=== PATIENT | female | born 1935 | race Caucasian/White ===

== ENCOUNTER 2022-05-05 13:57 | Inpatient (IN) | payer MEDICARE, SELFPAY ==
--- NOTE | ~2022-05-05 | XR_ITS ---
EXAMINATION: XR abdomen/kub 1V DATE: 05/07/2022 08:07 INDICATION: Constipation. TECHNIQUE: A supine view of the abdomen on 2 radiographs was obtained. COMPARISON: CT abdomen and pelvis 05/05/2022 FINDINGS: There are no dilated loops of bowel. There is a moderate volume of stool in the colon. Ther e is a bipolar right hip hemiarthroplasty. There are old healed fractures of right superior and infer ior pubic rami. IMPRESSION: 1. Nonobstructive bowel gas pattern with moderate volume of stool in the colon. Reviewed, dictated and finalized at location A. T EXPERIENCE CAPTAIN
--- NOTE | ~2022-05-05 | CT_ITS ---
EXAMINATION: CT abdomen pelvis wo con DATE: 05/05/2022 20:31 INDICATION: urinary retention x3 days, gen abd pain, constipation x2+ wk TECHNIQUE: Computed tomography (CT) of the abdomen and pelvis was performed without intravenous contr ast. Automated exposure control and iterative reconstruction technique were employed. The dose-length product was 213.77 mGy-cm. COMPARISON: X-ray abdomen, same date. FINDINGS: Lower thorax: Senescent change. Minimal bibasilar atelectasis. Coronary artery calcification. Hiatal hernia. Liver: Normal. Biliary/Gallbladder: Gallbladder is normal. No bile duct dilation. Pancreas: No mass or duct dilation. Spleen: Normal. Adrenals:No mass. Kidneys: No mass, stone, or hydronephrosis. GI tract: No small bowel dilation. The rectum is dilated to 5.1 cm by formed stool. Large volume of i nspissated appearing stool throughout the colon. Mild wall edema and inflammatory change surrounding the rectum. Normal appendix. Diverticulosis without diverticulitis. Mesentery/Peritoneum: No ascites, mass, or free air. Retroperitoneum: No mass. Atherosclerotic abdominal aortic and/or arterial calcifications. Pelvis: A Francisco catheter terminates in the urinary bladder which is distended, with wall thickening. Atrophic uterus. Soft Tissues: Soft tissues and body wall unremarkable. Bones: No acute osseous finding. IMPRESSION: Likely fecal impaction, with possible early findings of stercoral colitis. Distended urinary bladder despite the presence of a Francisco catheter, correlate with tube function. Cystitis. Reviewed, dictated and finalized at location K. LIANCE INTERN IMPRESSION: Likely fecal impaction, with possible early findings of stercoral colitis. Dist ended urinary bladder despite the presence of a Francisco catheter, correlate with tube function. Cystitis.
--- NOTE | ~2022-05-05 | XR_ITS ---
EXAMINATION: XR abdomen/kub 1V DATE: 05/05/2022 14:26 INDICATION: Constipation. TECHNIQUE: A supine view of the abdomen on 2 radiographs was obtained. COMPARISON: None. FINDINGS: There is a large volume of stool in the colon. There are no dilated loops of bowel. There i s a bipolar right hip hemiarthroplasty. There are old healed fractures of right superior and inferior pubic rami. IMPRESSION: 1. Large volume of stool in the colon. Reviewed, dictated and finalized at location A. [employer]
[2022-05-05 14:11] VITALS: BP 136/75; PULSE 94; RESP 18; TEMP 36.4; O2SAT 99
--- NOTE | 2022-05-05 19:12 | ED.FEMALEGU ---
HPI - Female Genitourinary General Chief complaint: Urogenital-Female Stated complaint: constipation Time Seen by Provider: 05/05/22 18:49 History of Present Illness HPI Narrative: Patient is an 86-year-old female presenting with constipation and urinary retention. Patient states that she has been struggling with constipation for the last several weeks. States that she has had several small bowel movements that are liquidy in nature. States that for the last 3 days she has been unable to have a bowel movement and it feels like something is sitting in her rectum. Patient also states that she has not urinated in 3 days. States that she does not feel like she needs to. She states that she has been eating and drinking normally. She does report some intermittent abdominal pain. No fevers or chills, cough, chest pain, shortness of breath, nausea or vomiting, flank pain, back pain. Related Data Home Medications Medication Instructions Recorded Confirmed amlodipine 10 mg tablet 10 mg PO DAILY 05/06/22 05/06/22 aspirin 81 mg tablet 81 mg PO DAILY 05/06/22 05/06/22 atorvastatin 40 mg tablet 40 mg PO HS 05/06/22 05/06/22 tramadol 50 mg tablet 50 mg PO DAILY 05/06/22 05/06/22 Allergies Allergy/AdvReac Type Severity Reaction Status Date / Time No Known Allergies Allergy Unknown Unverified 01/28/19 14:39 Review of Systems Review of Systems: All systems reviewed & are unremarkable except as noted in HPI and below PMFSH Past Medical History Medical History (Updated 05/08/22 @ 12:49 by Gertrudis Sinclair MD) Hyperlipidemia Hypertension Surgical History Surgical History (Updated 05/06/22 @ 13:51 by Jerica Marroquin PA-C) History of hip replacement, total Right Family History Family History (Updated 05/06/22 @ 13:51 by Jerica Marroquin PA-C) Sibling Carcinoma of colon Heart disease Mother Heart disease Social History Social History (Updated 05/06/22 @ 13:52 by Jerica Marroquin PA-C) Social History: Patient currently lives at home with her daughter. Patient has no pets. Patient denies smoking and illicit drug abuse. Patient does occasionally drink alcohol once a month when she plays poker with her friends. Smoking status: Never smoker Second hand tobacco smoke exposure: No Alcohol intake: never Substance use: never Substance use type: does not use Lack of Transportation: No Lack of Food: Never True Current Housing: I Have Housing Concerned About Future Housing: No Difficulty Paying Gas/Electric Bills: No Difficulty Paying for Meds: No Currently Unemployed: No Education: High School Diploma/GED Difficulty w/ Childcare or Family Care: No Spiritual care concerns: No Exam Narrative: GENERAL: Elderly female laying in bed in no acute distress, pleasant and cooperative HEAD: Normocephalic, atraumatic. EYES: PERRLA and EOMI. ENT: Nares clear, no rhinorrhea or epistaxis. Mucous membranes dry NECK: Supple. CHEST: Clear to auscultation. No respiratory distress. HEART: Regular rate and rhythm. No murmur heard. Normal peripheral pulses. ABDOMEN: Soft, suprapubic region with significant distention and tenderness EXTREMITIES: Normal range of motion. No edema. SKIN: Warm, dry, no rash. NEURO: No focal deficits. Alert and oriented x3. PSYCH: Normal mood and affect. Course Vital Signs Vital signs: Vital Signs Temperature 97.5 F L 05/05/22 14:11 Pulse Rate 94 05/05/22 14:11 Respiratory Rate 18 05/05/22 14:11 Blood Pressure 136/75 05/05/22 14:11 Pulse Oximetry 99 05/05/22 14:11 Temperature 97.8 F 05/08/22 03:25 Pulse Rate 81 05/08/22 03:25 Respiratory Rate 18 05/08/22 03:25 Blood Pressure 122/66 05/08/22 03:25 Pulse Oximetry 98 05/08/22 03:25 Oxygen Delivery Room Air 05/07/22 20:00 MDM - Female Genitourinary MDM Narrative Medical decision making narrative: Patient is an 86-year-old female presenting with constipation and
--- NOTE | 2022-05-05 19:43 | PC.NURSE ---
1899 ASsumed pt care from Zoya Ford RN
[2022-05-05 21:40] LABS: Basophils Absolute Auto 0.1 K/mm3 (0.0-0.1); Basophils Percent Auto 0.6 % (0.2-1.2); Eosinophils Absolute Auto 0.1 K/mm3 (0-0.3); Eosinophils Percent Auto 1.5 % (0-4.4); Hematocrit 34.3 % (37.0-47.0); Hemoglobin 11.2 g/dL (12.0-15.0); Immature Granulocyte Absolute 0.09 K/mm3 (0.00-0.031); Lymphocytes Absolute Auto 1.54 K/mm3 (0.9-3.2); Lymphocytes Percent Auto 16.6 % (18.3-44.2); Mean Corpuscular HGB Conc 32.7 g/dl (32-36); Mean Corpuscular Hemoglobin 30.1 pg (26-34); Mean Corpuscular Volume 92.2 fl (80-100); Mean Platelet Volume 12.3 fl (7.4-10.4); Monocytes Absolute Auto 0.7 K/mm3 (0.1-0.6); Neutrophils Absolute Auto 6.7 K/mm3 (1.3-6.7); Neutrophils Percent Auto 72.3 % (45.5-73.1); Platelet Count Result 159 k/mm3 (150-375); Red Blood Count 3.72 M/mm3 (4.2-5.4); Red Cell Distribution Width 13.9 % (11.5-14.5); White Blood Count 9.3 K/mm3 (4.5-10.0)
[2022-05-05 21:47] LABS: Appearance Urine Clear (Clear); Bilirubin Urine Negative (Negative); Blood Urine Trace-intact (Negative); Color Urine Yellow (Yellow); Glucose Urine UA Negative (Negative); Ketones Urine Negative (Negative); Leukocyte Esterase Ur Negative LEU/UL (Negative); Nitrate Urine Negative (Negative); Protein Urine Trace mg/dL (Negative); Specific Grav Ur 1.015 (1.001-1.035); Urobilinogen Urine 0.2 mg/dL (<2.0)
[2022-05-05 21:49] LABS: Mucus Urine Rare /lpf; RBC Urine 0-2 /hpf (0-2); Squamous Epithelial Cell Urine Rare /hpf (Few); WBC Urine 0-3 /hpf
[2022-05-05 21:51] LABS: Alanine Aminotransferase 22 U/L (6-35); Albumin Level 4.5 g/dL (3.5-5.1); Alkaline Phosphatase 67 U/L (38-126); Anion Gap 6 mmol/L (8-16); Aspartate Amino Transferase 30 U/L (14-36); Bilirubin,Total 0.5 mg/dL (0.2-1.3); Blood Urea Nitrogen 32 mg/dL (7-17); Calcium 9.1 mg/dL (8.4-10.2); Carbon Dioxide 30 mmol/L (22-30); Chloride 100 mmol/L (98-107); Estimated CRCL calculation 20 ml/min; Estimated Glomerular Filt Rate 39; Glucose 98 mg/dL (65-110); Lactic Acid Reflex 1.1 mmol/L (0.7-2.0); Potassium 3.8 mmol/L (3.4-5.0); Sodium 136 mmol/L (137-145)
[2022-05-05 21:56] LABS: Add Urine Microscopic? YES
[2022-05-05] MEDS: SODIUM CHLORIDE 0.9% IV 1,000 ML 999 ML IV CONT (22:55)
[2022-05-05 23:20] LABS: Influenza A QL RT-PCR Negative (Negative); Influenza B QL RT-PCR Negative (Negative); RSV RNA, RT-PCR Negative (Negative); SARS-CoV-2 RNA PCR Negative
[2022-05-05 23:34] VITALS: BP 134/75; PULSE 81; RESP 16; TEMP 36.6; O2SAT 100
[2022-05-06] VITALS (7 sets, daily range): BP systolic 123–136; BP diastolic 55–82; PULSE 74–106; RESP 16–18; TEMP 36.2–36.6; O2SAT 97–100; BMI 17.2
--- NOTE | 2022-05-06 02:36 | PC.NURSE ---
pt was admitted with arnett catheter in place, appropriate output, yellow urine, not cloudy. enema administered, liquid stool 20 minutes after enema administration. pt reports improvement. pt shown around the room, call light within reach, bed in lowest position, bed alarm on, advised to call for assistance. pt stated that she ambulates independently at home with no assistive devices. pt reports to be continent as her baseline. pt's medication reconciled. pt is a&o x4, able to make needs known.
[2022-05-06 08:19] LABS: Alanine Aminotransferase 19 U/L (6-35); Albumin Level 3.8 g/dL (3.5-5.1); Alkaline Phosphatase 57 U/L (38-126); Anion Gap 6 mmol/L (8-16); Aspartate Amino Transferase 28 U/L (14-36); Bilirubin,Total 0.7 mg/dL (0.2-1.3); Blood Urea Nitrogen 21 mg/dL (7-17); Calcium 8.5 mg/dL (8.4-10.2); Carbon Dioxide 27 mmol/L (22-30); Chloride 108 mmol/L (98-107); Estimated CRCL calculation 30 ml/min; Estimated Glomerular Filt Rate 60; Glucose 98 mg/dL (65-110); Potassium 3.6 mmol/L (3.4-5.0); Sodium 141 mmol/L (137-145)
[2022-05-06 08:21] LABS: Basophils Absolute Auto 0.1 K/mm3 (0.0-0.1); Basophils Percent Auto 0.8 % (0.2-1.2); Eosinophils Absolute Auto 0.2 K/mm3 (0-0.3); Eosinophils Percent Auto 2.5 % (0-4.4); Hematocrit 35.2 % (37.0-47.0); Hemoglobin 11.3 g/dL (12.0-15.0); Immature Granulocyte Absolute 0.08 K/mm3 (0.00-0.031); Immature Platelet Fraction Pct 12.4 % (0.9-11.2); Lymphocytes Absolute Auto 1.33 K/mm3 (0.9-3.2); Mean Corpuscular HGB Conc 32.1 g/dl (32-36); Mean Corpuscular Hemoglobin 30.1 pg (26-34); Mean Corpuscular Volume 93.9 fl (80-100); Mean Platelet Volume 12.9 fl (7.4-10.4); Monocytes Absolute Auto 0.7 K/mm3 (0.1-0.6); Monocytes Percent Auto 8.1 % (2.6-8.5); Neutrophils Percent Auto 71.6 % (45.5-73.1); Platelet Count Result 168 k/mm3 (150-375); Red Blood Count 3.75 M/mm3 (4.2-5.4); Red Cell Distribution Width 13.9 % (11.5-14.5); White Blood Count 8.3 K/mm3 (4.5-10.0)
[2022-05-06] MEDS: ASPIRIN 81 MG ENTERIC TABLET PO (08:40)
[2022-05-06] MEDS: amLODIPine BESYLATE 5 MG TABLET 10 MG PO (08:40)
[2022-05-06] MEDS: traMADol HCL (*CRX) 50 MG TABLET PO (08:43)
[2022-05-06] MEDS: BISACODYL 10 MG SUPPOSITORY RECTAL (08:43)
--- NOTE | 2022-05-06 13:19 | PM.IMHP ---
H&P: HPI History of Present Illness Date/Time: 05/06/22 13:19 Chief Complaint: Constipation, urinary retention Narrative: This is a 86-year-old female with a history of hypertension and hyperlipidemia who presented to the ED on 05/05/2022 with a chief complaint of constipation and urinary retention. Patient states that she had not urinated in 3 days prior to ED presentation as well as having constipation for 2-3 weeks. Patient did have some leakage from the rectum but not a bowel movement. Patient stated that what brought her into the ED was some left lower quadrant pain which is since resolved. Patient was eating and drinking normally without issues. Patient does not take constipation medication at home. Francisco catheter placed in the ED. Patient does have a history of constipation but has never had to be hospitalized for it. Patient not on chronic indwelling Francisco catheter and has never had urinary retention issues before. Abdominal x-ray revealed large volume of stool in the colon. CT abdomen pelvis revealed a likely fecal impaction, distended urinary bladder and cystitis. Patient admitted to the hospital and this setting. Will resume home meds as appropriate. Patient denies fever, headache, dizziness, chest pain, shortness a breath, nausea, vomiting and diarrhea. Patient currently still having constipation. Review of Systems Review of Systems: All systems reviewed & are unremarkable except as noted in HPI and below PMFSH Past Medical History Medical History (Updated 05/06/22 @ 13:51 by Jerica Marroquin PA-C) Hyperlipidemia Hypertension Surgical History Surgical History (Updated 05/06/22 @ 13:51 by Jerica Marroquin PA-C) History of hip replacement, total Right Family History Family History (Updated 05/06/22 @ 13:51 by Jerica Marroquin PA-C) Sibling Carcinoma of colon Heart disease Mother Heart disease Social History Social History (Updated 05/06/22 @ 13:52 by Jerica Marroquin PA-C) Social History: Patient currently lives at home with her daughter. Patient has no pets. Patient denies smoking and illicit drug abuse. Patient does occasionally drink alcohol once a month when she plays poker with her friends. Smoking status: Never smoker Second hand tobacco smoke exposure: No Alcohol intake: never Substance use: never Substance use type: does not use Lack of Transportation: No Lack of Food: Never True Current Housing: I Have Housing Concerned About Future Housing: No Difficulty Paying Gas/Electric Bills: No Difficulty Paying for Meds: No Currently Unemployed: No Education: High School Diploma/GED Difficulty w/ Childcare or Family Care: No Spiritual care concerns: No Meds Home Medications and Allergies Home Medications Medication Instructions Recorded Confirmed Type amlodipine 10 mg tablet 10 mg PO DAILY 05/06/22 05/06/22 History aspirin 81 mg tablet 81 mg PO DAILY 05/06/22 05/06/22 History atorvastatin 40 mg tablet 40 mg PO HS 05/06/22 05/06/22 History tramadol 50 mg tablet 50 mg PO DAILY 05/06/22 05/06/22 History Allergies Allergy/AdvReac Type Severity Reaction Status Date / Time No Known Allergies Allergy Unknown Unverified 01/28/19 14:39 Vital Signs Vital Signs - 24 hr 05/05/22 14:11 05/05/22 23:34 05/06/22 00:10 Temperature 97.5 F L 97.9 F 97.2 F L Pulse Rate 94 81 98 Respiratory Rate 18 16 18 Blood Pressure 136/75 134/75 136/80 Pulse Oximetry 99 100 98 Oxygen Delivery 05/06/22 02:22 05/06/22 03:26 05/06/22 10:45 Temperature 97.4 F L Pulse Rate 98 74 Respiratory Rate 18 17 Blood Pressure 132/55 L Pulse Oximetry 98 100 99 Oxygen Delivery Room Air Room Air 05/06/22 08:00 Temperature Pulse Rate Respiratory Rate Blood Pressure Pulse Oximetry Oxygen Delivery Room Air Exam Narrative: GENERAL: Comfortable, no acute distress, thin HENMT: moist mucous membranes EYES: EOM intact b/l NECK: no lymph
[2022-05-06] MEDS: polyethylene glycoL 3350 17 GM POWD.PACK PO (18:02)
[2022-05-06] MEDS: ATORVASTATIN 40 MG TABLET PO (20:04)
[2022-05-07] VITALS (7 sets, daily range): BP systolic 127–134; BP diastolic 69–74; PULSE 81–107; RESP 18; TEMP 36.6–36.8; O2SAT 98–100; BMI 17.2
[2022-05-07 05:14] LABS: Hematocrit 34.5 % (37.0-47.0); Hemoglobin 11.2 g/dL (12.0-15.0); Mean Corpuscular HGB Conc 32.5 g/dl (32-36); Mean Corpuscular Hemoglobin 30.2 pg (26-34); Mean Platelet Volume 12.8 fl (7.4-10.4); Platelet Count Result 172 k/mm3 (150-375); Red Blood Count 3.71 M/mm3 (4.2-5.4); Red Cell Distribution Width 13.8 % (11.5-14.5); White Blood Count 11.6 K/mm3 (4.5-10.0)
[2022-05-07 05:29] LABS: Alanine Aminotransferase 19 U/L (6-35); Alkaline Phosphatase 55 U/L (38-126); Anion Gap 7 mmol/L (8-16); Aspartate Amino Transferase 29 U/L (14-36); Bilirubin,Total 0.7 mg/dL (0.2-1.3); Blood Urea Nitrogen 25 mg/dL (7-17); Calcium 8.7 mg/dL (8.4-10.2); Carbon Dioxide 27 mmol/L (22-30); Chloride 101 mmol/L (98-107); Estimated CRCL calculation 27 ml/min; Estimated Glomerular Filt Rate 53; Glucose 112 mg/dL (65-110); Potassium 3.6 mmol/L (3.4-5.0); Sodium 135 mmol/L (137-145)
[2022-05-07] MEDS: BISACODYL 10 MG SUPPOSITORY RECTAL (08:48)
[2022-05-07] MEDS: ASPIRIN 81 MG ENTERIC TABLET PO (08:50)
[2022-05-07] MEDS: amLODIPine BESYLATE 5 MG TABLET 10 MG PO (08:50)
[2022-05-07] MEDS: ENOXAPARIN 40 MG/0.4 ML SYRINGE SUB-Q (08:50)
[2022-05-07] MEDS: traMADol HCL (*CRX) 50 MG TABLET PO (08:50)
--- NOTE | 2022-05-07 13:23 | PM.IMPN ---
Progress Note: A&P Assessment and Plan (1) Constipation: Code(s): K59.00 - Constipation, unspecified Status: Acute Assessment and Plan: Patient presented to the ED due to constipation for 2-3 weeks. 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 Abdominal x-ray revealed large volume of stool in colon CT abdomen pelvis revealed a likely fecal impaction with possible early findings stercoral colitis Biscoydal suppository q.a.m. MiraLax b.i.d. Colace as needed soapsuds enema 05/07/22 Pt had BM over the last 24 hours repeat KUB revealed moderate volume of stool Continue with current treatment (2) Urinary retention: Code(s): R33.9 - Retention of urine, unspecified Status: Acute Assessment and Plan: Patient stated that she did not urinate for 3 days prior to presentation to the ED Francisco catheter placed in the ED Bladder scan PRN 05/07/22 Pt having suprapubic tenderness today bladder scan to rule of catheter obstruction. (3) Hypertension: Code(s): I10 - Essential (primary) hypertension Status: Acute Assessment and Plan: Continue home medication Plan MEDICAL DECISION MAKING NARRATIVE History obtained from: Patient, daughter History from independent sources: None External chart review: None, no past charts available New problems addressed: Constipation, urinary retention Chronic illnesses addressed: none Discussion of management with other providers: None Comorbidities complicating care: None Risk of complication: Low Independent interpretation of studies: Imaging and labs were personally reviewed. Diagnostic tests considered but not ordered: None Encounter time: Greater than 35 minutes Subjective Date/time seen: 05/07/22 13:23 Interval history: Patient doing well today with no complaints. Patient had bowel movement yesterday after soapsuds enema was given. Patient denies abdominal pain, nausea, vomiting, fever. Review of Systems Review of Systems: All systems reviewed & are unremarkable except as noted in HPI and below Exam Narrative: GENERAL: Comfortable, no acute distress HENMT: moist mucous membranes EYES: EOM intact b/l NECK: no lymphadenopathy RESPIRATORY: clear to auscultation CARDIO: RRR GI: soft, suprapubic tender, bowel sounds present SKIN: no rashes EXTREMITIES: no edema, redness or tenderness Objective Data Vital Signs Vital Signs: Vital Signs - 24 hr 05/06/22 14:05 05/06/22 19:06 05/06/22 20:00 Temperature 98 F 97.6 F Pulse Rate 88 106 H 106 H Respiratory Rate 16 18 18 Blood Pressure 129/77 123/82 Pulse Oximetry 100 97 97 Oxygen Delivery Room Air 05/07/22 03:47 05/07/22 03:46 05/07/22 08:45 Temperature 97.8 F Pulse Rate 107 H 107 H 81 Respiratory Rate 18 18 Blood Pressure 127/72 133/74 Pulse Oximetry 100 100 99 Oxygen Delivery Room Air 05/07/22 09:35 Temperature Pulse Rate Respiratory Rate Blood Pressure Pulse Oximetry 99 Oxygen Delivery Room Air Intake/Output Intake/Output: Intake & Output 05/04/22 05/05/22 05/06/22 05/07/22 23:59 23:59 23:59 23:59 Intake Total 1000 1180 200 Output Total 1425 2250 850 Ggkytdy -971 -8955 -650 Meds/Results Medications: Active Medications Generic Name Dose Route Start Last Admin Trade Name Jason PRN Reason Stop Dose Admin Amlodipine Besylate 10 mg 05/06/22 09:00 05/07/22 08:50 Amlodipine Besylate 5 Mg Tablet PO 10 mg DAILY [facility] Administration Aspirin 81 mg 05/06/22 09:00 05/07/22 08:50 Aspirin 81 Mg Enteric Tablet PO 06/05/22 08:59 81 mg DAILY FIDEL Administration Atorvastatin Calcium 40 mg 05/06/22 21:00 05/06/22 20:04 Atorvastatin 40 Mg Tablet PO 40 mg HS [facility] Administration Bisacodyl 10 mg 05/06/22 09:00 05/07/22 08:48 Bisacodyl 10 Mg Suppository RECTAL 10 mg QAM [facility] Adm
[2022-05-07] MEDS: polyethylene glycoL 3350 17 GM POWD.PACK PO (21:14)
[2022-05-07] MEDS: ATORVASTATIN 40 MG TABLET PO (21:14)
[2022-05-08 03:25] VITALS: BP 122/66; PULSE 81; RESP 18; TEMP 36.6; O2SAT 98
[2022-05-08 05:39] LABS: Hematocrit 33.7 % (37.0-47.0); Hemoglobin 10.7 g/dL (12.0-15.0); Mean Corpuscular HGB Conc 31.8 g/dl (32-36); Mean Corpuscular Hemoglobin 29.6 pg (26-34); Mean Corpuscular Volume 93.4 fl (80-100); Mean Platelet Volume 12.9 fl (7.4-10.4); Platelet Count Result 165 k/mm3 (150-375); Red Blood Count 3.61 M/mm3 (4.2-5.4); Red Cell Distribution Width 13.6 % (11.5-14.5); White Blood Count 8.4 K/mm3 (4.5-10.0)
[2022-05-08 05:53] LABS: Alanine Aminotransferase 18 U/L (6-35); Albumin Level 3.8 g/dL (3.5-5.1); Alkaline Phosphatase 57 U/L (38-126); Anion Gap 3 mmol/L (8-16); Aspartate Amino Transferase 27 U/L (14-36); Bilirubin,Total 0.6 mg/dL (0.2-1.3); Blood Urea Nitrogen 23 mg/dL (7-17); Calcium 8.6 mg/dL (8.4-10.2); Carbon Dioxide 31 mmol/L (22-30); Chloride 100 mmol/L (98-107); Estimated CRCL calculation 25 ml/min; Estimated Glomerular Filt Rate 47; Glucose 106 mg/dL (65-110); Sodium 134 mmol/L (137-145)
[2022-05-08] MEDS: ENOXAPARIN 40 MG/0.4 ML SYRINGE SUB-Q (08:35)
[2022-05-08] MEDS: amLODIPine BESYLATE 5 MG TABLET 10 MG PO (08:35)
[2022-05-08] MEDS: traMADol HCL (*CRX) 50 MG TABLET PO (08:35)
[2022-05-08] MEDS: ASPIRIN 81 MG ENTERIC TABLET PO (08:35)
[2022-05-08] MEDS: polyethylene glycoL 3350 17 GM POWD.PACK PO ×2 (08:35→20:36)
[2022-05-08 14:00] VITALS: BP 131/70; PULSE 91; RESP 16; TEMP 36.8; O2SAT 100
--- NOTE | 2022-05-08 16:03 | P.PNIM_ITS ---
Progress Note: A&P Assessment and Plan (1) Constipation: Code(s): K59.00 - Constipation, unspecified Status: Acute Assessment and Plan: Patient presented to the ED due to constipation for 2-3 weeks. 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 * Abdominal x-ray revealed large volume of stool in colon * CT abdomen pelvis revealed a likely fecal impaction with possible early findings stercoral colitis * Biscoydal suppository q.a.m. * MiraLax b.i.d. * Colace as needed * soapsuds enema 05/07/22 * Pt had BM over the last 24 hours * repeat KUB revealed moderate volume of stool * Continue with current treatment 05/08/22 * resolved. (2) Urinary retention: Code(s): R33.9 - Retention of urine, unspecified Status: Acute Assessment and Plan: Patient stated that she did not urinate for 3 days prior to presentation to the ED * Francisco catheter placed in the ED * Bladder scan PRN 05/07/22 * Pt having suprapubic tenderness today * bladder scan to rule of catheter obstruction. 05/08/22 * Francisco catheter taken out * planned on d/c patient today but she has been unable to urinate * Francisco catheter will be put back in if bladder scan >350mL (3) Hypertension: Code(s): I10 - Essential (primary) hypertension Status: Acute Assessment and Plan: Continue home medication Subjective Date/time seen: 05/08/22 16:03 Interval history: Patient doing well today with no new complaints and she is without pain. Patient's Francisco catheter removed. If patient cannot urinate Francisco catheter will be put back in. Review of Systems Review of Systems: All systems reviewed & are unremarkable except as noted in HPI and below Exam Narrative: GENERAL: Comfortable, no acute distress HENMT: moist mucous membranes EYES: EOM intact b/l NECK: no lymphadenopathy RESPIRATORY: clear to auscultation CARDIO: RRR GI: soft, nontender, bowel sounds present SKIN: no rashes EXTREMITIES: no edema, redness or tenderness Objective Data Vital Signs Vital Signs: Vital Signs - 24 hr 05/07/22 21:03 05/07/22 20:00 05/08/22 03:25 Temperature 98.2 F 97.8 F Pulse Rate 90 90 81 Respiratory Rate 18 18 18 Blood Pressure 127/69 122/66 Pulse Oximetry 98 98 98 Oxygen Delivery Room Air 05/08/22 14:00 Temperature 98.2 F Pulse Rate 91 Respiratory Rate 16 Blood Pressure 131/70 Pulse Oximetry 100 Oxygen Delivery Intake/Output Intake/Output: Intake & Output 05/05/22 05/06/22 05/07/22 05/08/22 23:59 23:59 23:59 23:59 Intake Total 1000 1180 1240 960 Output Total 1425 2250 1600 400 Balance -425 -1070 -360 560 Meds/Results Medications: Active Medications Generic Name Dose Route Start Last Admin Trade Name Freq PRN Reason Stop Dose Admin Amlodipine Besylate 10 mg 05/06/22 09:00 05/08/22 08:35 Amlodipine Besylate 5 Mg Tablet PO 10 mg DAILY [facility]IDEL Administration Aspirin 81 mg 05/06/22 09:00 05/08/22 08:35
--- NOTE | 2022-05-08 16:03 | PM.IMPN ---
Progress Note: A&P Assessment and Plan (1) Constipation: Code(s): K59.00 - Constipation, unspecified Status: Acute Assessment and Plan: Patient presented to the ED due to constipation for 2-3 weeks. 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 Abdominal x-ray revealed large volume of stool in colon CT abdomen pelvis revealed a likely fecal impaction with possible early findings stercoral colitis Biscoydal suppository q.a.m. MiraLax b.i.d. Colace as needed soapsuds enema 05/07/22 Pt had BM over the last 24 hours repeat KUB revealed moderate volume of stool Continue with current treatment 05/08/22 resolved. (2) Urinary retention: Code(s): R33.9 - Retention of urine, unspecified Status: Acute Assessment and Plan: Patient stated that she did not urinate for 3 days prior to presentation to the ED Francisco catheter placed in the ED Bladder scan PRN 05/07/22 Pt having suprapubic tenderness today bladder scan to rule of catheter obstruction. 05/08/22 Francisco catheter taken out planned on d/c patient today but she has been unable to urinate Francisco catheter will be put back in if bladder scan >350mL (3) Hypertension: Code(s): I10 - Essential (primary) hypertension Status: Acute Assessment and Plan: Continue home medication Subjective Date/time seen: 05/08/22 16:03 Interval history: Patient doing well today with no new complaints and she is without pain. Patient's Francisco catheter removed. If patient cannot urinate Francisco catheter will be put back in. Review of Systems Review of Systems: All systems reviewed & are unremarkable except as noted in HPI and below Exam Narrative: GENERAL: Comfortable, no acute distress HENMT: moist mucous membranes EYES: EOM intact b/l NECK: no lymphadenopathy RESPIRATORY: clear to auscultation CARDIO: RRR GI: soft, nontender, bowel sounds present SKIN: no rashes EXTREMITIES: no edema, redness or tenderness Objective Data Vital Signs Vital Signs: Vital Signs - 24 hr 05/07/22 21:03 05/07/22 20:00 05/08/22 03:25 Temperature 98.2 F 97.8 F Pulse Rate 90 90 81 Respiratory Rate 18 18 18 Blood Pressure 127/69 122/66 Pulse Oximetry 98 98 98 Oxygen Delivery Room Air 05/08/22 14:00 Temperature 98.2 F Pulse Rate 91 Respiratory Rate 16 Blood Pressure 131/70 Pulse Oximetry 100 Oxygen Delivery Intake/Output Intake/Output: Intake & Output 05/05/22 05/06/22 05/07/22 05/08/22 23:59 23:59 23:59 23:59 Intake Total 1000 1180 1240 960 Output Total 1425 2250 1600 400 Balance -425 1070 -360 560 Meds/Results Medications: Active Medications Generic Name Dose Route Start Last Admin Trade Name Freq PRN Reason Stop Dose Admin Amlodipine Besylate 10 mg 05/06/22 09:00 05/08/22 08:35 Amlodipine Besylate 5 Mg Tablet PO 10 mg DAILY [facility] Administration Aspirin 81 mg 05/06/22 09:00 05/08/22 08:35 Aspirin 81 Mg Enteric Tablet PO 06/05/22 08:59 81 mg DAILY [facility] Administration Atorvastatin Calcium 40 mg 05/06/22 21:00 05/07/22 21:14 Atorvastatin 40 Mg Tablet PO 40 mg HS [facility] Administration Bisacodyl 10 mg 05/06/22 09:00 05/08/22 09:54 Bisacodyl 10 Mg Suppository RECTAL Not Given QAM [facility]IDEL Docusate Sodium 100 mg 05/06/22 13:22 Docusate Sodium 100 Mg Capsule PO Q12H PRN Constipation Enoxaparin Sodium 40 mg 05/07/22 09:00 05/08/22 08:35 Enoxaparin 40 Mg/0.4 Ml Syringe SUB-Q 40 mg DAILY [facility]IDEL Administration Polyethylene Glycol 17 gm 05/07/22 21:00 05/08/22 08:35 Polyethylene Glycol 3350 17 Gm Powd.Pack PO 17 gm Q12HR [facility]ID[facility] Administration Tramadol HCl 50 mg 05/06/22 09:00 05/08/22 08:35 Tramadol Hcl (*Crx) 50 Mg Tablet PO 50 mg DAILY [facility] Administration Radiology Results: ITS Impressions Abdom
[2022-05-08 20:01] VITALS: BP 129/62; PULSE 87; RESP 18; TEMP 37.3; O2SAT 100
[2022-05-08] MEDS: ATORVASTATIN 40 MG TABLET PO (20:36)
[2022-05-09 03:17] VITALS: BP 116/73; PULSE 91; RESP 18; TEMP 36.4; O2SAT 99
[2022-05-09 05:44] LABS: Basophils Absolute Auto 0.1 K/mm3 (0.0-0.1); Basophils Percent Auto 0.8 % (0.2-1.2); Eosinophils Absolute Auto 0.3 K/mm3 (0-0.3); Eosinophils Percent Auto 4.5 % (0-4.4); Hematocrit 32.4 % (37.0-47.0); Hemoglobin 10.5 g/dL (12.0-15.0); Immature Granulocyte Absolute 0.06 K/mm3 (0.00-0.031); Immature Granulocyte Percent A 0.8 % (0-0.5); Immature Platelet Fraction Pct 12.9 % (0.9-11.2); Lymphocytes Absolute Auto 1.67 K/mm3 (0.9-3.2); Lymphocytes Percent Auto 21.9 % (18.3-44.2); Mean Corpuscular HGB Conc 32.4 g/dl (32-36); Mean Corpuscular Hemoglobin 30.3 pg (26-34); Mean Corpuscular Volume 93.4 fl (80-100); Mean Platelet Volume 13.1 fl (7.4-10.4); Monocytes Absolute Auto 0.8 K/mm3 (0.1-0.6); Monocytes Percent Auto 10.4 % (2.6-8.5); Neutrophils Absolute Auto 4.7 K/mm3 (1.3-6.7); Neutrophils Percent Auto 61.6 % (45.5-73.1); Platelet Count Result 163 k/mm3 (150-375); Red Blood Count 3.47 M/mm3 (4.2-5.4); Red Cell Distribution Width 13.6 % (11.5-14.5); White Blood Count 7.6 K/mm3 (4.5-10.0)
[2022-05-09 05:48] LABS: Alanine Aminotransferase 17 U/L (6-35); Albumin Level 3.4 g/dL (3.5-5.1); Alkaline Phosphatase 54 U/L (38-126); Anion Gap 3 mmol/L (8-16); Aspartate Amino Transferase 26 U/L (14-36); Bilirubin,Total 0.5 mg/dL (0.2-1.3); Blood Urea Nitrogen 24 mg/dL (7-17); Calcium 8.8 mg/dL (8.4-10.2); Carbon Dioxide 33 mmol/L (22-30); Chloride 104 mmol/L (98-107); Estimated CRCL calculation 23 ml/min; Estimated Glomerular Filt Rate 43; Glucose 108 mg/dL (65-110); Potassium 4.4 mmol/L (3.4-5.0); Sodium 140 mmol/L (137-145)
[2022-05-09] MEDS: polyethylene glycoL 3350 17 GM POWD.PACK PO ×2 (09:22→21:59)
[2022-05-09] MEDS: ASPIRIN 81 MG ENTERIC TABLET PO (09:22)
[2022-05-09] MEDS: amLODIPine BESYLATE 5 MG TABLET 10 MG PO (09:22)
[2022-05-09 09:42] VITALS: BP 132/84; PULSE 88; RESP 16; TEMP 37.1; O2SAT 99
[2022-05-09] MEDS: traMADol HCL (*CRX) 50 MG TABLET PO (10:15)
--- NOTE | 2022-05-09 10:42 | PM.IMPN ---
Progress Note: A&P Assessment and Plan (1) Constipation: Code(s): K59.00 - Constipation, unspecified Status: Acute Assessment and Plan: Patient with 2-3 weeks constipation prior to presentation. Imaging with large volume of stool, fecal impaction. Bowel regimen + soap suds enema has been ordered. Has had improvement with her reporting normal bowel function at this time. - miralax twice daily. Ducolax daily suppository. (2) Urinary retention: Code(s): R33.9 - Retention of urine, unspecified Status: Acute Assessment and Plan: 3 days of symptoms prior to presentation. Had arnett for 1-2 days, removed yesterday. Bladder scan up to 800ml overnight but able to void when instructed to do so. Does not note any urge to urinate. - Medications reviewed, no significant meds as likely etiology. - No history neurogenic issues. No DM. Patient is quite functional at home. - I would suspect initially secondary to fecal stasis/constipation but has not resolved. - q4h bladder training. Encourage voiding. Check PVR. - Urology consultation. (3) Hypertension: Code(s): I10 - Essential (primary) hypertension Status: Acute Assessment and Plan: Continue home medication - stable bp. Plan Will await urology consultation and plan for discharge with any recommendations for management and/or further outpatient workup per those recommendations. Likely discharge in the next 24 hours. Time Spent With Patient Time with patient: 15 - 25 minutes Subjective Date/time seen: 05/09/22 0800 Interval history: Patient denies new complaint or concern this am. She is not having abdominal pain. She states she has been moving her bowels per her baseline. Per nursing since having the arnett out she has had multiple retention episodes with scan of ~800ml overnight - but has been able to void when prompted to do so. Review of Systems Review of Systems: All systems reviewed & are unremarkable except as noted in HPI and below Exam Narrative: GENERAL APPEARANCE: Appears to be in no acute distress. HEAD: normocephalic atraumatic ENT: Hearing grossly intact, no nasal discharge NECK: Neck supple, trachea midline. CARDIAC: Normal S1/S2. Rhythm is regular. No murmurs, rubs, or gallops. No cyanosis or pallor. Extremities are warm and well perfused. LUNGS: Clear to auscultation without rales, rhonchi, wheezing or diminished breath sounds. Respirations even and unlabored. ABDOMEN: BS positive x 4 quadrants. Soft, nondistended, nontender. No guarding or rebound. MSK: No joint tenderness/swelling, fair strength in all extremities. PERIPHERAL VASCULAR: Peripheral pulses palpable. Normal perfusion, cap refill <2 seconds. No edema. NEURO: Follows commands. No focal deficits. SKIN: [place] without lesions or eruptions. PSYCH: Stable, no paranoia or delusional thinking. Objective Data Vital Signs Vital Signs: Vital Signs - 24 hr 05/08/22 14:00 05/08/22 20:01 05/08/22 20:00 Temperature 98.2 F 99.1 F Pulse Rate 91 87 Respiratory Rate 16 18 Blood Pressure 131/70 129/62 Pulse Oximetry 100 100 Oxygen Delivery Room Air 05/09/22 03:17 05/09/22 09:42 Temperature 97.6 F 98.7 F Pulse Rate 91 88 Respiratory Rate 18 16 Blood Pressure 116/73 132/84 Pulse Oximetry 99 99 Oxygen Delivery Intake/Output Intake/Output: Intake & Output 05/06/22 05/07/22 05/08/22 05/09/22 23:59 23:59 23:59 23:59 Intake Total 1180 1240 1200 290 Output Total 2250 1600 700 800 Balance -1070 -360 500 -510 Meds/Results Medications: Active Medications Generic Name Dose Route Start Last Admin Trade Name Freq PRN Reason Stop Dose Admin Amlodipine Besylate 10 mg 05/06/22 09:00 05/09/22 09:22 Amlodipine Besylate 5 Mg Tablet PO 10 mg DAILY FIDEL Administration Aspirin 81 mg 05/06/22 09:00 05/09/22 09:22 Aspirin 81 Mg Enteric Tablet PO 06/05/22 08:59 81 mg DAILY FIDEL Administration Atorvastatin
[2022-05-09 10:44] LABS: IFOB Positive Control Positive; Immunochemical Fecal Occult Bl Positive (N)
[2022-05-09] MEDS: LACTATED RINGERS 1,000 ML 100 ML IV CONT (11:19)
[2022-05-09 14:47] VITALS: BP 128/78; PULSE 87; RESP 18; TEMP 36.6; O2SAT 100
--- NOTE | 2022-05-09 15:08 | WPDURCON ---
Assessment and Plan Assessment and plan (1) Urinary retention: Code(s): R33.9 - Retention of urine, unspecified Status: Acute Assessment and Plan: Possible neurogenic bladder in origin. Will need urodynamics study in the office. She should have bladder scans PRN and if >400cc she should have a arnett re-placed. Urology Consult Note HPI Date Seen: 05/09/22 Time Seen: 14:00 Requesting Physician: Renuka Ward DO Primary Care Provider: Kedar Ospina MD Consult Narrative Narrative: Jes Huertas is a 86 year old female who presented to the ER with severe constipation and urinary retention 4 days ago. She states she hadn't urinated for 3 days prior to this. Her daughter states she does have CKD but doesn't see a edge plugger and doesn't do dialysis. Her creatinine is 1.20 today and is 0.90 at baseline. Her UA is not suspicious of a UTI, WBC is 7.6, she is afebrile and CT showed a distended bladder despite arnett in place on 04/26/22. Initially when the arnett was placed in the ER she had 300-400cc upon return immediately, but 1200cc were noted on return once the arnett stopped draining. She had a bladder scan after the arnett was removed for a voiding trial today and her PVR was 600cc, then she urinated and her PVR was 300cc in which prompted a consult to urology for incomplete emptying. She states she has been drinking fluids all day but doesn't have the urge to urinate. She denies dysuria, frequency, urgency, incontinence, flank pain, hematuria, or chronic UTI's prior to her hospitalization. Her daughter is in the room and states that the patient's sister has a neurogenic bladder and has to catheterize. Review of Systems Cardiovascular: Cardiovascular: Denies chest pain Respiratory: Respiratory: Reports no additional respiratory complaints Gastrointestinal: Gastrointestinal: Denies abdominal pain, Denies nausea and Denies vomiting Genitourinary: Genitourinary: Denies hematuria, Reports urinary frequency, Denies nocturia, Denies dysuria, Denies pelvic pain, Denies flank pain, Denies urinary incontinence, Reports urinary hesitancy and Denies urinary urgency PMFSH Past Medical History Medical History Hyperlipidemia Hypertension Surgical History Surgical History History of hip replacement, total Right Family History Family History Sibling Carcinoma of colon Heart disease Mother Heart disease Social History Social History Social History: Patient currently lives at home with her daughter. Patient has no pets. Patient denies smoking and illicit drug abuse. Patient does occasionally drink alcohol once a month when she plays poker with her friends. Smoking status: Never smoker Second hand tobacco smoke exposure: No Alcohol intake: never Substance use: never Substance use type: does not use Lack of Transportation: No Lack of Food: Never True Current Housing: I Have Housing Concerned About Future Housing: No Difficulty Paying Gas/Electric Bills: No Difficulty Paying for Meds: No Currently Unemployed: No Education: High School Diploma/GED Difficulty w/ Childcare or Family Care: No Spiritual care concerns: No Meds Home Medications and Allergies Home Medications Medication Instructions Recorded Confirmed Type amlodipine 10 mg tablet 10 mg PO DAILY 05/06/22 05/06/22 History aspirin 81 mg tablet 81 mg PO DAILY 05/06/22 05/06/22 History atorvastatin 40 mg tablet 40 mg PO HS 05/06/22 05/06/22 History tramadol 50 mg tablet 50 mg PO DAILY 05/06/22 05/06/22 History Allergies Allergy/AdvReac Type Severity Reaction Status Date / Time No Known Allergies Allergy Unknown Unverified 01/28/19 14:39 Vital Signs Vital Signs - 24 h
[2022-05-09] MEDS: ENOXAPARIN 40 MG/0.4 ML SYRINGE SUB-Q (16:44)
[2022-05-09 20:41] VITALS: BP 118/56; PULSE 84; RESP 17; TEMP 36.8; O2SAT 97
[2022-05-09] MEDS: ATORVASTATIN 40 MG TABLET PO (21:59)
--- NOTE | 2022-05-10 01:58 | PC.NURSE ---
Last staff member to empty arnett bag did not clamp drain and arnett emptied continuously on to floor for 3-4 hours, x1 unmeasured void will be documented for this.
[2022-05-10 05:18] VITALS: BP 122/72; PULSE 79; RESP 17; TEMP 36.5; O2SAT 99
[2022-05-10 05:35] LABS: Hematocrit 31.5 % (37.0-47.0); Immature Platelet Fraction Pct 13.6 % (0.9-11.2); Mean Corpuscular HGB Conc 31.7 g/dl (32-36); Mean Corpuscular Hemoglobin 30.5 pg (26-34); Mean Platelet Volume 13.1 fl (7.4-10.4); Platelet Count Result 172 k/mm3 (150-375); Red Blood Count 3.28 M/mm3 (4.2-5.4); Red Cell Distribution Width 13.5 % (11.5-14.5); White Blood Count 6.5 K/mm3 (4.5-10.0)
[2022-05-10 05:39] LABS: Anion Gap 4 mmol/L (8-16); Blood Urea Nitrogen 24 mg/dL (7-17); Calcium 8.4 mg/dL (8.4-10.2); Carbon Dioxide 31 mmol/L (22-30); Chloride 104 mmol/L (98-107); Estimated CRCL calculation 25 ml/min; Estimated Glomerular Filt Rate 47; Glucose 101 mg/dL (65-110); Potassium 3.8 mmol/L (3.4-5.0); Sodium 139 mmol/L (137-145)
[2022-05-10] MEDS: amLODIPine BESYLATE 5 MG TABLET 10 MG PO (09:33)
[2022-05-10] MEDS: ASPIRIN 81 MG ENTERIC TABLET PO (09:33)
[2022-05-10] MEDS: polyethylene glycoL 3350 17 GM POWD.PACK PO (09:34)
[2022-05-10 09:36] VITALS: RESP 18; O2SAT 99
[2022-05-10] MEDS: BISACODYL 10 MG SUPPOSITORY RECTAL (09:36)
[2022-05-10] MEDS: traMADol HCL (*CRX) 50 MG TABLET PO (09:36)
[2022-05-10] MEDS: ENOXAPARIN 40 MG/0.4 ML SYRINGE SUB-Q (09:45)
[2022-05-10] MEDS: ONDANSETRON INJ 4 MG/2 ML VIAL IV PUSH (11:01)
[2022-05-10 11:30] VITALS: BP 130/68; PULSE 84
[2022-05-10 11:33] VITALS: BP 128/73; PULSE 93
[2022-05-10 11:36] VITALS: BP 123/70; PULSE 100
--- NOTE | 2022-05-10 14:11 | PM.DS ---
DS: Admitting Diagnosis Discharge Date 05/10/22 Admitting Diagnosis Constipation, urinary retention, hypertension DS: Discharge Diagnosis Discharge Diagnosis (1) Urinary retention: Code(s): R33.9 - Retention of urine, unspecified Status: Acute Assessment and Plan: Retaining presumed 2/2 to constipation/fecal impaction but symptoms did not improve. A arnett catheter is in place with drainage of clear urine. No s/s of infection. Will discharge with arnett cath in place and urology f/u. (2) Fecal impaction: Code(s): K56.41 - Fecal impaction Status: Acute Assessment and Plan: Resolved. Continue with miralax. (3) Constipation: Code(s): K59.00 - Constipation, unspecified Status: Acute Assessment and Plan: Miralax to continue. Resolved. (4) Hypertension: Code(s): I10 - Essential (primary) hypertension Status: Acute Assessment and Plan: Stable without acute need to change medication therapy. DS: Summary Hospital Course Reason for hospitalization: Acute constipation, urinary retention Hospital Course: Jes Huertas is an 86 year old female who presented with several weeks of constipation and 3 days of urinary retention. She was treated with miralax and bisacodyl with excellent results and stools have resumed, constipation resolved. In regards to the retention, she had a arnett placed, removed, and then unfortunately she continued to retain urine. Urology was consulted and the arnett was reinserted. She will discharge with arnett in place and f/u as an outpatient with urology for urodynamic testing. Status at Discharge Cognitive/behavioral status at discharge: Functional, ambulatory, alert/oriented and conversant. Functional status at discharge: independent ambulation Overall status at discharge: patient is back to baseline Time Spent with Patient Time attestation: Total time spent providing and/or coordinating discharge services: 45 minutes. Time spent: Greater than 30 minutes Exam Narrative: GENERAL APPEARANCE: Appears to be in no acute distress. HEAD: normocephalic atraumatic ENT: Hearing grossly intact, no nasal discharge NECK: Neck supple, trachea midline. CARDIAC: Normal S1/S2. Rhythm is regular. No murmurs, rubs, or gallops. No cyanosis or pallor. Extremities are warm and well perfused. LUNGS: Clear to auscultation without rales, rhonchi, wheezing or diminished breath sounds. Respirations even and unlabored. ABDOMEN: BS positive x 4 quadrants. Soft, nondistended, nontender. No guarding or rebound. MSK: No joint tenderness/swelling, fair strength in all extremities. : Arnett cath in place. PERIPHERAL VASCULAR: Peripheral pulses palpable. Normal perfusion, cap refill <2 seconds. No edema. NEURO: Follows commands. No focal deficits. SKIN: [place] without lesions or eruptions. PSYCH: Stable, no paranoia or delusional thinking. DS: Data Data Completed and Pending Labs on day of discharge: Labs from last 24 hours 05/10/22 05/10/22 04:46 04:46 WBC 6.5 RBC 3.28 L Hgb 10.0 L Hct 31.5 L MCV 96.0 MCH 30.5 MCHC 31.7 L RDW 13.5 Plt Count 172 MPV 13.1 H % Immature Plt Fraction 13.6 H Sodium 139 Potassium 3.8 Chloride 104 Carbon Dioxide 31 H Anion Gap 4 L BUN 24 H Creatinine 1.10 H Estim Creat Clear Calc 25 Estimated GFR 47 L Glucose 101 Calcium 8.4 Imaging Radiologist's impression: EXAMINATION: CT abdomen pelvis wo con DATE: 05/05/2022 20:31 INDICATION: urinary retention x3 days, gen abd pain, constipation x2+ wk TECHNIQUE: Computed tomography (CT) of the abdomen and pelvis was performed without intravenous contrast. Automated exposure control and iterative reconstruction technique were employed. The dose-length product was 213.77 mGy-cm. COMPARISON: X-ray abdomen, same date. FINDINGS: Lower thorax: Senescent change. Minimal bibasilar atelectasis. Coronary artery calcificat
[2022-05-10 14:50] VITALS: BP 124/66; PULSE 86; RESP 16; TEMP 36.9; O2SAT 100
== END 2022-05-10 16:00 | disposition home or self-care (01) | DRG 390 ==
LOC: ANHED 19:03 → ANH2MED 22:54
PROVIDERS: Internal Medicine Critical Care Medicine; Nurse Practitioner; Admitting Provider Internal Medicine; Emergency Provider Emergency Medicine; PCP Family Medicine; Visit Provider Nurse Practitioner Family
DX: K56.41 Fecal impaction (principal); E78.5 Hyperlipidemia, unspecified; I10 Essential (primary) hypertension; R33.9 Retention of urine, unspecified; Z20.822 Contact with and (suspected) exposure to COVID-19; Z96.641 Presence of right artificial hip joint; Z80.0 Family history of malignant neoplasm of digestive organs
CPT/HCPCS: 36415; 51702; 74018; 74176; 80048; 80053; 81001; 82274; 83605; 85025; 85027; 85055; 87637; 96360; 96361; 96372; 99285; A9270; G0378; J1650; J2405; J7030; J7120

== ENCOUNTER 2024-01-05 08:06 | Emergency (ER) | payer OTHER, MEDICARE, SELFPAY ==
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
[2024-01-05 08:18] VITALS: BP 162/99; PULSE 92; RESP 18; TEMP 36.4; O2SAT 99
[2024-01-05] MEDS: oxyCODONE HCL (*CRX) 5 MG TAB IR PO (08:50)
[2024-01-05 09:23] LABS: Basophils Absolute Auto 0.1 K/mm3 (0.0-0.1); Basophils Percent Auto 0.9 % (0.2-1.2); Eosinophils Absolute Auto 0.1 K/mm3 (0-0.3); Eosinophils Percent Auto 1.4 % (0-4.4); Hematocrit 41.3 % (37.0-47.0); Hemoglobin 13.5 g/dL (12.0-15.0); Lymphocytes Absolute Auto 1.02 K/mm3 (0.9-3.2); Lymphocytes Percent Auto 10.2 % (18.3-44.2); Mean Corpuscular HGB Conc 32.7 g/dl (32-36); Mean Corpuscular Hemoglobin 30.7 pg (26-34); Mean Corpuscular Volume 93.9 fl (80-100); Mean Platelet Volume 12.1 fl (7.4-10.4); Monocytes Absolute Auto 0.7 K/mm3 (0.1-0.6); Monocytes Percent Auto 6.8 % (2.6-8.5); Neutrophils Percent Auto 79.7 % (45.5-73.1); Platelet Count Result 219 k/mm3 (150-375); Red Cell Distribution Width 13.2 % (11.5-14.5)
[2024-01-05 09:34] LABS: Prothrombin Time 13.6 Seconds (11.1-14.7)
[2024-01-05 09:35] LABS: Lactic Acid Reflex 1.4 mmol/L (0.7-2.0)
[2024-01-05 09:35] LABS: Partial Thromboplastin Time 46.7 Seconds (22.3-36.8)
[2024-01-05 09:36] LABS: Alanine Aminotransferase 13 U/L (6-35); Albumin Level 4.6 g/dL (3.5-5.1); Alkaline Phosphatase 79 U/L (38-126); Anion Gap 14 mmol/L (4-12); Aspartate Amino Transferase 28 U/L (14-36); Bilirubin,Total 0.7 mg/dL (0.2-1.3); Blood Urea Nitrogen 19 mg/dL (7-17); Calcium 9.6 mg/dL (8.4-10.2); Carbon Dioxide 25 mmol/L (22-30); Chloride 99 mmol/L (98-107); Estimated CRCL calculation 22 ml/min; Estimated Glomerular Filt Rate 43; Glucose 146 mg/dL (65-110); Lipase 55 U/L (23-300); Magnesium 1.9 mg/dL (1.6-2.3); Potassium 3.5 mmol/L (3.4-5.0); Sodium 138 mmol/L (137-145)
[2024-01-05 09:47] LABS: Troponin I 0.017 ng/mL (0.000-0.034)
[2024-01-05 10:59] VITALS: BP 176/90; PULSE 84; RESP 20; O2SAT 98
[2024-01-05 11:02] LABS: Add Urine Microscopic? YES; Appearance Urine Cloudy (Clear); Bacteria Urine 4+ /hpf; Bilirubin Urine Negative (Negative); Blood Urine Negative (Negative); Color Urine Yellow (Yellow); Glucose Urine UA Negative (Negative); Ketones Urine Negative (Negative); Leukocyte Esterase Ur Trace LEU/UL (Negative); Nitrate Urine Negative (Negative); Non Pathogenic Casts 0-2; Protein Urine 2+ mg/dL (Negative); RBC Urine 0-2 /hpf (0-2); Specific Grav Ur 1.015 (1.001-1.035); Squamous Epithelial Cell Urine None Seen /hpf (Few)
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
[2024-01-05 12:00] VITALS: BP 174/97; PULSE 84; RESP 18; O2SAT 99
--- NOTE | 2024-01-05 12:16 | PC.NURSE ---
Patient walked down the [place] with one assist without difficulty.
[2024-01-05 16:15] VITALS: PULSE 72; RESP 18; O2SAT 94
== END 2024-01-05 16:16 | disposition home or self-care (01) ==
PROVIDERS: Emergency Provider Emergency Medicine
DX: S22.061A Stable burst fracture of T7-T8 vertebra, initial encounter for closed fracture (principal); V47.6XXA Car passenger injured in collision with fixed or stationary object in traffic accident, initial encounter; E78.5 Hyperlipidemia, unspecified; I10 Essential (primary) hypertension
CPT/HCPCS: 36415; 70450; 71250; 72125; 72128; 72132; 74177; 80053; 81001; 83605; 83690; 83735; 84484; 85025; 85610; 85730; 87086; 87088; 99284; A9270; Q9967

== ENCOUNTER 2024-01-14 08:33 | Outpatient (CLI) | payer MEDICARE, SELFPAY ==
--- NOTE | ~2024-01-14 | XR_ITS ---
3 VIEWS THORACIC SPINE Ordering provider: Bryan Brown MD History: . S22.001A - Stable burst fracture of unspecified thoracic ... . Comparison: None. FINDINGS: VERTEBRAL BODIES: Compression fracture of T9 with loss of volume of about 70% which is most likely ac marcelina otherwise,. Normal height and alignment. No visible other fracture or subluxation. DISK SPACES: Narrowing of the disc T8-T9 and T9-T10. SOFT TISSUES: Normal. IMPRESSION: Acute compression fracture of T9. Reviewed, dictated and finalized at location A.
== END 2024-01-14 08:34 | disposition home or self-care (01) ==
PROVIDERS: PCP Neurological Surgery; Visit Provider Neurological Surgery
DX: S22.071A Stable burst fracture of T9-T10 vertebra, initial encounter for closed fracture (principal)
CPT/HCPCS: 72072

== ENCOUNTER 2024-03-15 10:45 | Emergency (ER) | payer MEDICARE, SELFPAY ==
[2024-03-15 11:01] VITALS: BP 104/76; PULSE 111; RESP 18; TEMP 36.2; O2SAT 99
--- NOTE | 2024-03-15 11:49 | PC.NURSE ---
Pt declined to be seen by EDP, states just needed the leak in her arnett bag fixed, bag was changed and arnett port patent. Pt ambulated out w/ walker, daughter at bedside.
== END 2024-03-15 12:49 | disposition left against medical advice (07) ==
PROVIDERS: Emergency Provider Emergency Medicine; PCP Family Medicine
DX: Z43.6 Encounter for attention to other artificial openings of urinary tract (principal)
CPT/HCPCS: 99199